=== PATIENT | female | born 1970 | race Hispanic/Latino ===

== ENCOUNTER 2024-06-26 06:32 | Day surgery (SDC) | payer OTHER ==
[2024-06-26] VITALS (9 sets, daily range): BP systolic 110–135; BP diastolic 49–78; PULSE 67–78; RESP 15–18; TEMP 97.1–97.9
[~2024-06-26] VITALS: Ht 160 cm; Wt 138.3 kg
[2024-06-26] MEDS: 0.9%NACL 1000ML 1,000 ML IV ONE (07:23)
[2024-06-26] MEDS ORDERED: LIDOCAINE PF 100MG/5ML (2%) SYRINGE 5ML ONE (09:36)
[2024-06-26] MEDS ORDERED: proPOFol 10 MG/ML 20ML VIAL IV ONE ×2 (09:36→09:52)
[2024-06-26] MEDS ORDERED: GLYCOPYRROLATE 0.2 MG/ML 5 ML VIAL ONE (09:49)
== END 2024-06-26 11:05 | disposition home or self-care (01) ==
LOC: DAH 06:32 → ENDO 06:32
PROVIDERS: ATTEND Internal Medicine Gastroenterology
DX: Z12.11 Encounter for screening for malignant neoplasm of colon (principal); K21.00 Gastro-esophageal reflux disease with esophagitis, without bleeding; K63.89 Other specified diseases of intestine; K44.9 Diaphragmatic hernia without obstruction or gangrene; K57.30 Diverticulosis of large intestine without perforation or abscess without bleeding; K22.2 Esophageal obstruction; K59.00 Constipation, unspecified; K31.89 Other diseases of stomach and duodenum; R10.13 Epigastric pain; K76.0 Fatty (change of) liver, not elsewhere classified; Z98.890 Other specified postprocedural states
CPT/HCPCS: 81025; 43239; 43249; 45380; J7030 ×2; J2003; J2704 ×2; J3490; C1726; A4620; A4215; A4223; A7002; A4222; A4221; A4663; A4606